=== PATIENT | male | born 1955 | race Two or more races ===

== ENCOUNTER 2023-07-19 16:02 | Inpatient (IN) | payer MEDICARE, MEDICAID ==
[~2023-07-19] VITALS: Ht 167.6 cm; Wt 71.1 kg
[2023-07-19 16:40] VITALS: RESP 16; O2SAT 95
[2023-07-19 17:21] LABS: Basophils # (auto) 0.1 10 ^3/uL (0-0.2); Basophils % (auto) 0.9 % (0.0-2.0); Eosinophils # (auto) 0.1 10 ^3/uL (0-0.8); Eosinophils % (auto) 1.5 % (0.0-7.0); Hematocrit 39.6 % (41.0-53.0); Hemoglobin 12.1 g/dL (13.5-17.5); Lymphocytes # (auto) 2.8 10 ^3/uL (0.4-5.4); Lymphocytes % (auto) 29.3 % (10.0-50.0); Mean Corpuscular Hemoglobin 24.7 pg (28.0-32.0); Mean Corpuscular Hgb Conc. 30.5 g/dL (32.0-36.0); Mean Corpuscular Volume 81.2 fL (80.0-100.0); Monocytes # (auto) 0.7 10 ^3/uL (0-1.3); Neutrophils # (auto) 5.7 10 ^3/uL (1.6-8.6); Neutrophils % (auto) 60.3 % (37.0-80.0); Nucleated Red Blood Cells % 0.1 %; Red Blood Cells 4.87 10^6/uL (4.5-5.90); Red Cell Distribution Width 19.5 % (11.8-14.3); White Blood Cell 9.4 10^3/uL (4.4-10.8)
[2023-07-19 17:37] LABS: Alanine Aminotransferase 15 U/L (7-40); Alkaline Phosphatase 74 U/L (46-116); Anion Gap 13 (5-15); Aspartate Aminotransferase 20 U/L (13-40); BUN/Creatinine Ratio 20.6 (10.0-20.0); Bilirubin, Total 0.3 mg/dL (0.2-1.0); Calcium 9.6 mg/dL (8.5-10.1); Carbon Dioxide 21 mmol/L (20-30); Chloride 121 mmol/L (98-107); Glucose 129 mg/dL (74-106); Potassium 3.8 mmol/L (3.5-5.1); Sodium 155 mmol/L (136-145); Total Protein 6.8 g/dL (5.7-8.2)
[2023-07-19 17:57] LABS: INR 1.09 (0.9-1.15); Partial Thromboplastin Time 28.3 SEC (24.5-34.5); Prothrombin Time 11.5 sec (9.3-11.8)
[2023-07-19 18:20] LABS: Blood Urea Nitrogen 89 mg/dL (9-23)
[2023-07-19 19:30] VITALS: PULSE 77; RESP 16; O2SAT 93
[2023-07-19] MEDS ORDERED: ONDANSETRON HCL 4 MG/2 ML VIAL IV PRN (22:15)
[2023-07-19] MEDS ORDERED: NITROGLYCERIN 0.4 MG SL TAB SL PRN (22:15)
[2023-07-19] MEDS ORDERED: MORPHINE SULFATE INJ 2 MG/ml SYRG IV PRN (22:15)
[2023-07-19] MEDS ORDERED: DEXTROSE (50%) 50ML SYRG IV PRN (22:15)
[2023-07-19 22:43] LABS: Chloride 121 mmol/L (98-107); Potassium 3.9 mmol/L (3.5-5.1); Sodium 154 mmol/L (136-145)
[2023-07-19 22:44] LABS: Anion Gap 16 (5-15); Carbon Dioxide 17 mmol/L (20-30)
[2023-07-19 22:49] LABS: BUN/Creatinine Ratio 18.2 (10.0-20.0); Glucose 114 mg/dL (74-106)
[2023-07-19 22:55] LABS: Blood Urea Nitrogen 83 mg/dL (9-23)
[2023-07-20] VITALS (7 sets, daily range): BP systolic 134–147; BP diastolic 66–86; PULSE 73–83; RESP 16–18; TEMP 97.6–98.3; O2SAT 93–96
[2023-07-20] MEDS: ACCU-CHEK COMFORT CURVE STRIP VI SCH
[2023-07-20] MEDS: InsuLIN REG 1unit/0.01ml Soln (100units/ml) SC SCH
[2023-07-20 09:09] LABS: Basophils # (auto) 0.1 10 ^3/uL (0-0.2); Basophils % (auto) 0.7 % (0.0-2.0); Eosinophils # (auto) 0.2 10 ^3/uL (0-0.8); Eosinophils % (auto) 2.5 % (0.0-7.0); Hematocrit 39.7 % (41.0-53.0); Hemoglobin 11.6 g/dL (13.5-17.5); Lymphocytes # (auto) 2.5 10 ^3/uL (0.4-5.4); Lymphocytes % (auto) 27.8 % (10.0-50.0); Mean Corpuscular Hemoglobin 24.7 pg (28.0-32.0); Mean Corpuscular Hgb Conc. 29.3 g/dL (32.0-36.0); Mean Corpuscular Volume 84.2 fL (80.0-100.0); Monocytes # (auto) 0.6 10 ^3/uL (0-1.3); Monocytes % (auto) 7.2 % (0.0-12.0); Neutrophils # (auto) 5.5 10 ^3/uL (1.6-8.6); Neutrophils % (auto) 61.8 % (37.0-80.0); Nucleated Red Blood Cells % 0.1 %; Red Blood Cells 4.72 10^6/uL (4.5-5.90); Red Cell Distribution Width 19.7 % (11.8-14.3); White Blood Cell 8.9 10^3/uL (4.4-10.8)
[2023-07-20 09:15] LABS: Alanine Aminotransferase 15 U/L (7-40); Albumin 3.9 g/dL (3.2-4.8); Alkaline Phosphatase 73 U/L (46-116); Anion Gap 11 (5-15); Aspartate Aminotransferase 16 U/L (13-40); Bilirubin, Total 0.5 mg/dL (0.2-1.0); Blood Urea Nitrogen 79 mg/dL (9-23); Calcium 9.7 mg/dL (8.5-10.1); Carbon Dioxide 21 mmol/L (20-30); Chloride 120 mmol/L (98-107); Glucose 125 mg/dL (74-106); Potassium 3.5 mmol/L (3.5-5.1); Sodium 152 mmol/L (136-145); Total Protein 6.6 g/dL (5.7-8.2)
[2023-07-20 09:24] LABS: Platelet Estimate Adequate
[2023-07-20 09:25] LABS: Anisocytosis Slight; Hypochromia Slight
[2023-07-20] MEDS: ASPirin 81 mg TAB PO SCH (10:00)
[2023-07-20] MEDS: LACOSAMIDE 200 MG PO SCH (10:00)
[2023-07-20] MEDS: levETIRAcetam 500 MG TAB PO SCH (10:10)
[2023-07-20] MEDS: APIXABAN 5 MG TAB PO SCH (10:10)
[2023-07-20] MEDS: DOXYCYCLINE 100MG/250ML 250 ML IV SCH (13:12)
[2023-07-20] MEDS: MUPIROCIN 2% OINT 15gm or 22gm FOR MRSA NARES EACHNOSTRI SCH (23:17)
[2023-07-21 01:00] VITALS: BP 111/81; PULSE 81; RESP 18; TEMP 98.1; O2SAT 92
[2023-07-21 05:00] VITALS: BP 118/89; PULSE 84; RESP 18; TEMP 97.9; O2SAT 93
[2023-07-21 08:00] VITALS: BP 119/69; PULSE 80; RESP 18; TEMP 97.9; O2SAT 91
[2023-07-21 10:38] LABS: Eosinophils # (auto) 0.2 10 ^3/uL (0-0.8); Hemoglobin 11.2 g/dL (13.5-17.5); Lymphocytes # (auto) 2.3 10 ^3/uL (0.4-5.4); Mean Corpuscular Volume 79.5 fL (80.0-100.0); Monocytes # (auto) 0.6 10 ^3/uL (0-1.3); Neutrophils % (auto) 57.6 % (37.0-80.0); Nucleated Red Blood Cells % 0.1 %
[2023-07-21 10:40] LABS: Basophils # (auto) 0 10 ^3/uL (0-0.2); Basophils % (auto) 0.5 % (0.0-2.0); Eosinophils % (auto) 2.8 % (0.0-7.0); Hematocrit 36.1 % (41.0-53.0); Lymphocytes % (auto) 31.1 % (10.0-50.0); Mean Corpuscular Hemoglobin 24.6 pg (28.0-32.0); Mean Corpuscular Hgb Conc. 30.9 g/dL (32.0-36.0); Neutrophils # (auto) 4.3 10 ^3/uL (1.6-8.6); Red Blood Cells 4.54 10^6/uL (4.5-5.90); White Blood Cell 7.5 10^3/uL (4.4-10.8)
[2023-07-21 10:45] LABS: Chloride 109 mmol/L (98-107); Potassium 3.5 mmol/L (3.5-5.1); Sodium 144 mmol/L (136-145)
[2023-07-21 10:46] LABS: Anion Gap 7 (5-15); Calcium 9.1 mg/dL (8.5-10.1); Carbon Dioxide 28 mmol/L (20-30)
[2023-07-21 10:51] LABS: BUN/Creatinine Ratio 18.9 (10.0-20.0); Glucose 80 mg/dL (74-106)
[2023-07-21 10:57] LABS: Blood Urea Nitrogen 43 mg/dL (9-23)
[2023-07-21 12:00] VITALS: BP 142/77; PULSE 68; RESP 18; TEMP 97.5; O2SAT 97
[2023-07-21 16:00] VITALS: BP 131/76; PULSE 65; RESP 20; TEMP 97.9; O2SAT 97
[2023-07-22] VITALS (7 sets, daily range): BP systolic 103–164; BP diastolic 62–78; PULSE 65–78; RESP 16–20; TEMP 97.5–97.9; O2SAT 96–98
[2023-07-22 06:05] LABS: Basophils # (auto) 0 10 ^3/uL (0-0.2); Basophils % (auto) 0.5 % (0.0-2.0); Eosinophils # (auto) 0.3 10 ^3/uL (0-0.8); Eosinophils % (auto) 3.9 % (0.0-7.0); Hematocrit 39.4 % (41.0-53.0); Hemoglobin 11.9 g/dL (13.5-17.5); Mean Corpuscular Hgb Conc. 30.2 g/dL (32.0-36.0); Mean Corpuscular Volume 82.8 fL (80.0-100.0); Monocytes # (auto) 0.6 10 ^3/uL (0-1.3); Monocytes % (auto) 7.2 % (0.0-12.0); Neutrophils # (auto) 4.4 10 ^3/uL (1.6-8.6); Neutrophils % (auto) 52.4 % (37.0-80.0); Nucleated Red Blood Cells % 0.1 %; Red Blood Cells 4.76 10^6/uL (4.5-5.90); Red Cell Distribution Width 19.7 % (11.8-14.3); White Blood Cell 8.3 10^3/uL (4.4-10.8)
[2023-07-22 06:32] LABS: Alanine Aminotransferase 10 U/L (7-40); Alkaline Phosphatase 73 U/L (46-116); Anion Gap 10 (5-15); BUN/Creatinine Ratio 14.9 (10.0-20.0); Blood Urea Nitrogen 46 mg/dL (9-23); Calcium 9.2 mg/dL (8.5-10.1); Carbon Dioxide 24 mmol/L (20-30); Chloride 106 mmol/L (98-107); Glucose 87 mg/dL (74-106); Potassium 3.7 mmol/L (3.5-5.1); Sodium 140 mmol/L (136-145)
[2023-07-22 06:33] LABS: Albumin 3.8 g/dL (3.2-4.8); Aspartate Aminotransferase 14 U/L (13-40); Bilirubin, Total 0.5 mg/dL (0.2-1.0); Total Protein 6.4 g/dL (5.7-8.2)
[2023-07-22 09:35] LABS: Urine Bacteria None Seen /hpf (None Seen)
[2023-07-22 09:48] LABS: Urine Blood 1+ /uL (Negative); Urine Clarity Ex.Turbid (Clear); Urine Color Light-Orange (Yellow); Urine Hyaline Cast MANY /lpf (0 - 2); Urine Mucus FEW (None Seen); Urine Protein, UAD 3+ (Negative); Urine Specific Gravity 1.015 (1.001-1.035); Urine Urobilinogen Normal (Negative); Urine WBC 431 /hpf (0 - 3); Urine WBC Clumps PRESENT /hpf (None Seen)
[2023-07-22 10:47] LABS: Erythrocyte Sedimentation Rate 8 mm/hr (0-20)
[2023-07-22] MEDS: cefTRIAXone 1GM/50ML D5W 50 ML IV ONE (15:08)
[2023-07-23] VITALS (7 sets, daily range): BP systolic 117–161; BP diastolic 45–97; PULSE 69–84; RESP 16–20; TEMP 97.8–98.2; O2SAT 95–98
[2023-07-23] MEDS: cefTRIAXone 1GM/50ML D5W 50 ML IV SCH (09:56)
[2023-07-23 11:32] LABS: Basophils # (auto) 0.1 10 ^3/uL (0-0.2); Basophils % (auto) 0.9 % (0.0-2.0); Eosinophils # (auto) 0.3 10 ^3/uL (0-0.8); Eosinophils % (auto) 3.5 % (0.0-7.0); Hematocrit 39.3 % (41.0-53.0); Hemoglobin 12.1 g/dL (13.5-17.5); Lymphocytes # (auto) 2.7 10 ^3/uL (0.4-5.4); Lymphocytes % (auto) 37.8 % (10.0-50.0); Mean Corpuscular Hemoglobin 24.7 pg (28.0-32.0); Mean Corpuscular Hgb Conc. 30.9 g/dL (32.0-36.0); Mean Corpuscular Volume 80.1 fL (80.0-100.0); Monocytes # (auto) 0.5 10 ^3/uL (0-1.3); Monocytes % (auto) 7.5 % (0.0-12.0); Neutrophils # (auto) 3.6 10 ^3/uL (1.6-8.6); Neutrophils % (auto) 50.3 % (37.0-80.0); Nucleated Red Blood Cells % 0.2 %; Red Cell Distribution Width 19.7 % (11.8-14.3); White Blood Cell 7.2 10^3/uL (4.4-10.8)
[2023-07-23 11:58] LABS: Anion Gap 9 (5-15); Carbon Dioxide 25 mmol/L (20-30); Chloride 103 mmol/L (98-107); Potassium 3.6 mmol/L (3.5-5.1); Sodium 137 mmol/L (136-145)
[2023-07-23 11:59] LABS: Calcium 9.6 mg/dL (8.5-10.1)
[2023-07-23 12:04] LABS: BUN/Creatinine Ratio 18.1 (10.0-20.0); Glucose 94 mg/dL (74-106)
[2023-07-23 12:09] LABS: Blood Urea Nitrogen 58 mg/dL (9-23)
[2023-07-23] MEDS: ALBUMIN 25% 100 ML IV PRN (15:53)
[2023-07-24 05:20] VITALS: BP 173/89; PULSE 74; RESP 18; TEMP 97.4; O2SAT 97
[2023-07-24] MEDS: cloNIDine HCL 0.1 MG TAB PO ONE ×2 (05:40→06:03)
[2023-07-24 05:59] LABS: Basophils # (auto) 0 10 ^3/uL (0-0.2); Basophils % (auto) 0.6 % (0.0-2.0); Eosinophils # (auto) 0.3 10 ^3/uL (0-0.8); Eosinophils % (auto) 3.8 % (0.0-7.0); Hematocrit 34.3 % (41.0-53.0); Hemoglobin 10.7 g/dL (13.5-17.5); Lymphocytes # (auto) 3.2 10 ^3/uL (0.4-5.4); Mean Corpuscular Hgb Conc. 31.2 g/dL (32.0-36.0); Mean Corpuscular Volume 80.1 fL (80.0-100.0); Monocytes # (auto) 0.7 10 ^3/uL (0-1.3); Monocytes % (auto) 9.8 % (0.0-12.0); Neutrophils # (auto) 3.3 10 ^3/uL (1.6-8.6); Neutrophils % (auto) 43.8 % (37.0-80.0); Nucleated Red Blood Cells % 0.1 %; Red Blood Cells 4.28 10^6/uL (4.5-5.90); Red Cell Distribution Width 19.3 % (11.8-14.3); White Blood Cell 7.5 10^3/uL (4.4-10.8)
[2023-07-24 06:03] LABS: Chloride 104 mmol/L (98-107); Potassium 3.7 mmol/L (3.5-5.1); Sodium 138 mmol/L (136-145)
[2023-07-24 06:04] LABS: Anion Gap 7 (5-15); Carbon Dioxide 27 mmol/L (20-30)
[2023-07-24 06:05] LABS: Calcium 9.1 mg/dL (8.5-10.1)
[2023-07-24 06:09] LABS: BUN/Creatinine Ratio 14.3 (10.0-20.0); Glucose 94 mg/dL (74-106)
[2023-07-24 06:13] LABS: Blood Urea Nitrogen 37 mg/dL (9-23)
[2023-07-24 08:56] VITALS: BP 145/72; PULSE 68; RESP 20; TEMP 97.9; O2SAT 97
[2023-07-24] MEDS: levETIRAcetam 500 MG TAB PO SCH ×2 (10:27→19:43)
[2023-07-24 10:29] LABS: Hepatitis B Surface Antibody Negative (Negative)
[2023-07-24 10:41] LABS: Hepatitis B Surface Antigen Negative (Negative)
[2023-07-24 13:14] VITALS: BP 138/82; PULSE 72; RESP 20; TEMP 97.3; O2SAT 99
[2023-07-24 17:00] VITALS: BP 139/80; PULSE 67; RESP 17; TEMP 97.9; O2SAT 93
[2023-07-24] MEDS ORDERED: levETIRAcetam 500 MG TAB PO SCH (18:45)
[2023-07-24] MEDS ORDERED: LORazepam 2MG/ML-1ML VIAL IV PRN ×2 (18:45)
[2023-07-24 20:00] VITALS: BP 139/80; PULSE 67; RESP 17; TEMP 97.9; O2SAT 93
[2023-07-24 21:00] VITALS: BP 136/80; PULSE 71; RESP 16; TEMP 97.9; O2SAT 98
[2023-07-24 21:31] LABS: Free T4 (Free Thyroxine) 1.6 ng/dL (0.89-1.76)
[2023-07-24 21:32] LABS: Folate (Folic Acid) 15.26 ng/mL (>5.38)
[2023-07-24] MEDS: LACOSAMIDE 50 MG TAB PO SCH (23:20)
[2023-07-25 05:00] VITALS: BP 165/92; PULSE 70; RESP 18; TEMP 97.9; O2SAT 99
[2023-07-25 05:58] LABS: Eosinophils # (auto) 0.3 10 ^3/uL (0-0.8); Eosinophils % (auto) 3.7 % (0.0-7.0); Lymphocytes # (auto) 3.1 10 ^3/uL (0.4-5.4); Neutrophils # (auto) 2.8 10 ^3/uL (1.6-8.6); Nucleated Red Blood Cells % 0.1 %
[2023-07-25 06:00] LABS: Basophils # (auto) 0.1 10 ^3/uL (0-0.2); Basophils % (auto) 0.7 % (0.0-2.0); Hematocrit 34.3 % (41.0-53.0); Hemoglobin 10.6 g/dL (13.5-17.5); Lymphocytes % (auto) 44.5 % (10.0-50.0); Mean Corpuscular Hemoglobin 25.2 pg (28.0-32.0); Mean Corpuscular Hgb Conc. 30.8 g/dL (32.0-36.0); Mean Corpuscular Volume 81.8 fL (80.0-100.0); Monocytes # (auto) 0.7 10 ^3/uL (0-1.3); Neutrophils % (auto) 41.1 % (37.0-80.0); Red Blood Cells 4.19 10^6/uL (4.5-5.90); Red Cell Distribution Width 19.8 % (11.8-14.3); White Blood Cell 6.9 10^3/uL (4.4-10.8)
[2023-07-25 06:14] LABS: Anion Gap 9 (5-15); Carbon Dioxide 24 mmol/L (20-30); Chloride 102 mmol/L (98-107); Potassium 3.7 mmol/L (3.5-5.1); Sodium 135 mmol/L (136-145)
[2023-07-25 06:16] LABS: Calcium 8.9 mg/dL (8.5-10.1)
[2023-07-25 06:20] LABS: BUN/Creatinine Ratio 16.7 (10.0-20.0); Glucose 117 mg/dL (74-106)
[2023-07-25 06:24] LABS: Blood Urea Nitrogen 48 mg/dL (9-23)
[2023-07-25 09:00] VITALS: BP 155/90; PULSE 68; RESP 21; TEMP 97.8; O2SAT 99
[2023-07-25] MEDS ORDERED: ERTAPENEM SOD INJ 1 GM in SODIUM CHL 0.9% 50 ML IV SCH (10:00)
[2023-07-25 13:17] VITALS: BP 141/89; PULSE 82; RESP 18; TEMP 97.9; O2SAT 98
[2023-07-25] MEDS: ERTAPENEM SOD INJ 0.5 GM in SODIUM CHL 0.9% 50 ML IV SCH (15:40)
[2023-07-25 17:00] VITALS: BP 156/82; PULSE 79; RESP 18; TEMP 97.8; O2SAT 98
[2023-07-25 20:10] VITALS: BP 151/73; PULSE 78; RESP 14; TEMP 98.4; O2SAT 95
[2023-07-25 21:00] VITALS: BP 151/73; PULSE 78; RESP 14; TEMP 98.4; O2SAT 97
[2023-07-26] VITALS (8 sets, daily range): BP systolic 104–159; BP diastolic 49–105; PULSE 70–76; RESP 14–18; TEMP 97.4–98; O2SAT 98–99
[2023-07-26] MEDS: ACETAMINOPHEN 325 MG TAB PO PRN (18:38)
[2023-07-27] VITALS (8 sets, daily range): BP systolic 102–175; BP diastolic 63–97; PULSE 61–80; RESP 15–19; TEMP 97.6–98; O2SAT 96–99
[2023-07-27] MEDS: MIDODRINE HCL 10 MG TAB PO ONE (08:15)
[2023-07-27] MEDS: hydrALAZINE HCL 20 MG/ML VL IV PRN (13:04)
[2023-07-27] MEDS: cloNIDine HCL 0.1 MG TAB PO ONE (17:09)
[2023-07-28 01:03] VITALS: BP 148/73; PULSE 68; RESP 19; TEMP 98.2; O2SAT 97
[2023-07-28 05:07] VITALS: BP 101/48; PULSE 59; RESP 19; TEMP 98.6; O2SAT 99
[2023-07-28 08:00] VITALS: PULSE 64; RESP 19
[2023-07-28 09:00] VITALS: BP 125/66; PULSE 64; RESP 17; TEMP 97.3; O2SAT 100
[2023-07-28 13:00] VITALS: BP 191/75; PULSE 68; RESP 18; TEMP 97.7; O2SAT 98
== END 2023-07-28 14:00 | DRG 152 ==
LOC: EDBD 16:02 → ER 16:02 → TELE 22:17 → TELE-EAST 23:44 → EAST 07-21 22:07
PROVIDERS: ADMIT Internal Medicine; ATTEND Internal Medicine
PROC: 5A1D70Z Performance of Urinary Filtration, Intermittent, Less than 6 Hours Per Day (ICD-10-PCS; 2023-07-21)
PROC: 5A1D70Z Performance of Urinary Filtration, Intermittent, Less than 6 Hours Per Day (ICD-10-PCS; 2023-07-23)
PROC: 5A1D70Z Performance of Urinary Filtration, Intermittent, Less than 6 Hours Per Day (ICD-10-PCS; principal; 2023-07-25)
PROC: 5A1D70Z Performance of Urinary Filtration, Intermittent, Less than 6 Hours Per Day (ICD-10-PCS; 2023-07-27)
DX: J01.90 Acute sinusitis, unspecified (principal); G93.41 Metabolic encephalopathy; I21.A1 Myocardial infarction type 2; N18.6 End stage renal disease; N39.0 Urinary tract infection, site not specified; E87.0 Hyperosmolality and hypernatremia; I69.354 Hemiplegia and hemiparesis following cerebral infarction affecting left non-dominant side; I12.0 Hypertensive chronic kidney disease with stage 5 chronic kidney disease or end stage renal disease; G40.909 Epilepsy, unspecified, not intractable, without status epilepticus; D63.1 Anemia in chronic kidney disease; E11.22 Type 2 diabetes mellitus with diabetic chronic kidney disease; F01.50 Vascular dementia, unspecified severity, without behavioral disturbance, psychotic disturbance, mood disturbance, and anxiety; I48.91 Unspecified atrial fibrillation; Z99.2 Dependence on renal dialysis; Z88.0 Allergy status to penicillin; Z88.8 Allergy status to other drugs, medicaments and biological substances; Z89.511 Acquired absence of right leg below knee; Z89.512 Acquired absence of left leg below knee; Z79.01 Long term (current) use of anticoagulants; Z79.899 Other long term (current) drug therapy; Z80.0 Family history of malignant neoplasm of digestive organs; Z80.6 Family history of leukemia
CPT/HCPCS: 36415; 70450; 71045; 74176; 80048; 80053; 81001; 82140; 82607; 82746; 82962; 83605; 84439; 84443; 84484; 85025; 85610; 85652; 85730; 86141; 86706; 87040; 87081; 87086; 87088; 87186; 87340; 90935; 93306; 97110; 97163; 97530; G0378; J1335; J1815; J3490; P9047